=== PATIENT | female | born 1965 | race Caucasian/White ===

== ENCOUNTER 2021-09-20 20:37 | Emergency (ER) | payer OTHER ==
[~2021-09-20] VITALS: Ht 157.5 cm; Wt 64.0 kg
[2021-09-20] MEDS ORDERED: ADDERALL 20 MG20 M1 PO (20:41)
[2021-09-20] MEDS ORDERED: NORCO 10-325 T1 EACH PO (20:42)
[2021-09-20] MEDS ORDERED: ALPRAZOLAM XR3 MG PO (20:42)
[2021-09-20] MEDS ORDERED: EPIPEN 2-P0.3 MG/0.3 IM (23:42)
[2021-09-21 00:13] VITALS: BP 148/67
== END 2021-09-21 00:31 | disposition home or self-care (01) ==
LOC: ER 20:37
DX: T78.40XA Allergy, unspecified, initial encounter (principal); G43.909 Migraine, unspecified, not intractable, without status migrainosus; Z79.891 Long term (current) use of opiate analgesic; Z79.899 Other long term (current) drug therapy; Z88.8 Allergy status to other drugs, medicaments and biological substances; Z91.013 Allergy to seafood; X58.XXXA Exposure to other specified factors, initial encounter

== ENCOUNTER 2021-09-23 05:37 | Emergency (ER) | payer OTHER ==
[~2021-09-23] VITALS: Ht 157.5 cm; Wt 63.0 kg
[~2021-09-23 05:37] MED LIST: ADDERALL 20 MG20 M1 PO; ALPRAZOLAM XR3 MG PO; EPIPEN 2-P0.3 MG/0.3 IM; NORCO 10-325 T1 EACH PO
[2021-09-23 07:40] LABS: HEMATOCRIT 45.3 % (37.0-47.0); MCH 29.9 pg (26.0-34.0); MCHC 33.2 g/dL (28.0-37.0); MCV 89.9 fL (80.0-100.0); RBC 5.04 mil/uL (4.20-5.00); RDW 13.6 % (10.5-14.5); WBC 13.2 thou/uL (4.0-11.0)
[2021-09-23 08:00] LABS: CREATININE 0.8 mg/dL (0.6-1.0)
[2021-09-23 08:03] LABS: ALBUMIN 3.4 g/dL (3.4-5.0); TOTAL BILIRUBIN 0.6 mg/dL (0.2-1.0); TOTAL PROTEIN 6.8 g/dL (6.4-8.2)
[2021-09-23] MEDS ORDERED: PREDNISONE 20 M20 MG PO (11:27)
[2021-09-23] MEDS ORDERED: AUGMENTIN 875-1 EACH PO (11:27)
[2021-09-23 11:35] VITALS: BP 140/95
== END 2021-09-23 11:34 | disposition home or self-care (01) ==
LOC: ER 05:37
PROVIDERS: Emergency Medicine
DX: T78.49XA Other allergy, initial encounter (principal); L50.9 Urticaria, unspecified; J32.9 Chronic sinusitis, unspecified; G43.909 Migraine, unspecified, not intractable, without status migrainosus; Z79.891 Long term (current) use of opiate analgesic; Z79.899 Other long term (current) drug therapy; Z88.8 Allergy status to other drugs, medicaments and biological substances; Z91.013 Allergy to seafood; X58.XXXA Exposure to other specified factors, initial encounter